=== PATIENT | female | born 1990 | race Caucasian/White ===

== ENCOUNTER 2017-04-13 06:24 | Emergency (ER) | payer MEDICARE ==
[~2017-04-13 06:24] MED LIST: BACTRIM D.S. TAB1 EA PO; NORCO 7.5-3251 EACH PO
== END 2017-04-13 09:16 | disposition home or self-care (01) ==
LOC: ER1 06:24
DX: L02.01 Cutaneous abscess of face (principal); T78.40XA Allergy, unspecified, initial encounter; R21 Rash and other nonspecific skin eruption; F17.210 Nicotine dependence, cigarettes, uncomplicated; Z88.5 Allergy status to narcotic agent
CPT/HCPCS: 10060; 99282; Q0163

== ENCOUNTER 2017-05-08 19:04 | Emergency (ER) | payer MEDICARE | END 2017-05-08 21:18 | disposition left against medical advice (07) | LOC: ER1 19:04 | DX: Z53.21 Procedure and treatment not carried out due to patient leaving prior to being seen by health care provider (principal) | CPT/HCPCS: 93005; 99281 ==

== ENCOUNTER 2017-05-11 21:58 | Emergency (ER) | payer MEDICARE | END 2017-05-12 02:01 | disposition left against medical advice (07) | LOC: ER1 21:58 | DX: Z53.21 Procedure and treatment not carried out due to patient leaving prior to being seen by health care provider (principal) ==

== ENCOUNTER 2021-07-03 17:25 | Emergency (ER) | payer MEDICARE ==
[~2021-07-03 17:25] MED LIST changes: +BUPRENORPHIN-N1 EACH SL; +CEFUROXIME500 MG PO; +HYDROCODON-ACE1 EAC1 PO; +LITHIUM CARBON300 M3 PO; +MACROBID 100 M100 MG PO; +VENTOLIN HFA 66.7 GM INH; +VIBRAMYCIN100 MG PO
== END 2021-07-04 01:15 | disposition home or self-care (01) ==
LOC: ER1 17:25
DX: L02.01 Cutaneous abscess of face (principal); J45.909 Unspecified asthma, uncomplicated; F17.200 Nicotine dependence, unspecified, uncomplicated; Z88.5 Allergy status to narcotic agent; Z90.89 Acquired absence of other organs
CPT/HCPCS: 99282

== ENCOUNTER 2021-07-12 18:47 | Emergency (ER) | payer MEDICARE ==
[2021-07-12 22:17] LABS: HEMOGLOBIN 12.3 gm/dl (12.3-15.3); RED BLOOD COUNT 3.93 M/UL (4.00-5.10); WHITE BLOOD COUNT 14.3 K/UL (4.5-11.0)
== END 2021-07-13 01:49 | disposition home or self-care (01) ==
LOC: ER1 18:47
PROVIDERS: Physician Assistant
DX: K92.1 Melena (principal); F17.210 Nicotine dependence, cigarettes, uncomplicated; Z88.5 Allergy status to narcotic agent
CPT/HCPCS: 80053; 81001; 83605; 83690; 84703; 85025; 85610; 99284

== ENCOUNTER 2021-09-07 12:10 | Emergency (ER) | payer OTHER ==
[2021-09-07] MEDS ORDERED: CYCLOBENZAPRINE10 MG PO (13:43)
== END 2021-09-07 13:53 | disposition home or self-care (01) ==
LOC: ER1 12:10
DX: S96.912A Strain of unspecified muscle and tendon at ankle and foot level, left foot, initial encounter (principal); J45.909 Unspecified asthma, uncomplicated; F17.200 Nicotine dependence, unspecified, uncomplicated; Z88.5 Allergy status to narcotic agent; X50.0XXA Overexertion from strenuous movement or load, initial encounter; Y92.69 Other specified industrial and construction area as the place of occurrence of the external cause
CPT/HCPCS: 93971; 96372; 99283; J1885

== ENCOUNTER 2022-07-08 14:27 | Emergency (ER) | payer OTHER ==
[~2022-07-08 14:27] MED LIST changes: +CYCLOBENZAPRINE10 MG PO
[2022-07-08] MEDS ORDERED: DOXYCYCLINE HY100 MG PO (16:20)
[2022-07-08] MEDS ORDERED: NAPROXEN500 MG PO (16:20)
== END 2022-07-08 16:48 | disposition home or self-care (01) ==
LOC: ER1 14:27
DX: L02.31 Cutaneous abscess of buttock (principal); J45.909 Unspecified asthma, uncomplicated; F17.200 Nicotine dependence, unspecified, uncomplicated; Z88.5 Allergy status to narcotic agent
CPT/HCPCS: 10060; 99283